=== PATIENT | female | born 1985 | race Caucasian/White ===

== ENCOUNTER 2021-10-30 11:03 | Inpatient (IN) | payer OTHER ==
[~2021-10-30] VITALS: Ht 160 cm; Wt 54.5 kg
[2021-10-30 12:20] LABS: HEMATOCRIT 41.1 % (36.0-47.0); HEMOGLOBIN 13.4 g/dl (12.0-15.5); MEAN CORPUSCULAR HEMOGLOBIN 30.6 pg (27.0-33.0); MEAN CORPUSCULAR HGB CONC 32.6 g/dl (32.0-36.5); MEAN CORPUSCULAR VOLUME 93.8 fl (80.0-96.0); PLATELET COUNT, AUTOMATED 271 10^3/uL (150-450); RED BLOOD COUNT 4.38 10^6/uL (4.00-5.40); WHITE BLOOD COUNT 12.2 10^3/uL (4.0-10.0)
[2021-10-30 13:03] LABS: HCG, SERUM QUALITATIVE NEGATIVE (NEGATIVE)
[2021-10-30 13:12] LABS: ACETAMINOPHEN LEVEL < 2.0 UG/ML (10.0-30.0); ALBUMIN 4.4 GM/DL (3.2-5.2); ALT/SGPT 56 U/L (12-78); BILIRUBIN,DIRECT 0.1 MG/DL (0.0-0.2); BILIRUBIN,TOTAL 0.6 MG/DL (0.2-1.0); BLOOD UREA NITROGEN 20 MG/DL (7-18); CALCIUM LEVEL 9.3 MG/DL (8.5-10.1); CARBON DIOXIDE LEVEL 28 MEQ/L (21-32); CHLORIDE LEVEL 102 MEQ/L (98-107); CREATININE FOR GFR 0.81 MG/DL (0.55-1.30); ETHYL ALCOHOL (ETHANOL) < 0.003 % (0.000-0.010); GLOMERULAR FILTRATION RATE > 60.0 (>60); GLUCOSE, FASTING 146 MG/DL (70-100); POTASSIUM SERUM 4.2 MEQ/L (3.5-5.1); SALICYLATE LEVEL 4.4 MG/DL (5.0-30.0); SODIUM LEVEL 138 MEQ/L (136-145); THYROID STIMULATING HORMONE 0.905 uIU/ML (0.358-3.740); TOTAL PROTEIN 8.8 GM/DL (6.4-8.2)
[2021-10-30 19:14] LABS: AMPHETAMINES LEVEL URINE NEGATIVE (NEGATIVE); BARBITURATES URINE NEGATIVE (NEGATIVE); BENZODIAZEPINES URINE NEGATIVE (NEGATIVE); CANNABINOIDS URINE POSITIVE (NEGATIVE); COCAINE METABOLITE URINE NEGATIVE (NEGATIVE); METHADONE URINE POSITIVE (NEGATIVE); OPIATES URINE POSITIVE (NEGATIVE); PHENCYCLIDINE URINE NEGATIVE (NEGATIVE)
[2021-10-30] MEDS ORDERED: OLANZapine ORAL DISINTEGRATING TAB 5MG PO PRN (21:30)
[2021-10-30] MEDS ORDERED: MOM 30ML SUSPENSION UDC PO PRN (21:30)
[2021-10-30] MEDS ORDERED: traZODone 50 MG TAB PO PRN (21:30)
[2021-10-30] MEDS ORDERED: MAALOX 30 ML SUSP *UDC PO PRN (21:30)
[2021-10-30] MEDS ORDERED: ACETAMINOPHEN TAB 650MG DOSE (2X325MG) PO PRN (21:30)
[2021-10-31] MEDS ORDERED: LORazepam 2 MG/ML VIAL IM ONE (02:00)
[2021-10-31] MEDS ORDERED: HALOPERIDOL 5MG/ML VIAL (J1630 PER 1) IM ONE (02:00)
[2021-10-31] MEDS ORDERED: diphenhydrAMINE 50MG/ML VIAL (J1200) IM ONE (02:00)
[2021-10-31] MEDS ORDERED: GABAPENTIN 100 MG CAP PO PRN ×2 (11:30→11:50)
[2021-10-31] MEDS ORDERED: QUEtiapine FUMARATE 100 MG TAB PO PRN (11:50)
[2021-11-01 06:23] VITALS: BP 108/72
[2021-11-01] MEDS: SERTRALINE HCL 25 MG TABLET PO SCH (11:44)
[2021-11-01 13:52] LABS: CHOLESTEROL RISK RATIO 2.588 (<5)
[2021-11-01 18:15] VITALS: BP 109/70
[2021-11-02 06:55] VITALS: BP 105/65
[2021-11-02] MEDS: SERTRALINE HCL 25 MG TABLET PO SCH (09:59)
[2021-11-02] MEDS: diphenhydrAMINE 25MG CAP PO PRN ×2 (14:41→20:56)
[2021-11-02 16:00] VITALS: BP 141/90
[2021-11-03 07:11] VITALS: BP 116/87
[2021-11-03] MEDS: SERTRALINE HCL 25 MG TABLET PO SCH (08:53)
[2021-11-03] MEDS: diphenhydrAMINE 25MG CAP PO PRN (08:53)
[2021-11-03] MEDS ORDERED: DIPH25CA32 PO (11:50)
[2021-11-03] MEDS ORDERED: ABIL1TAB11 PO (11:50)
[2021-11-03] MEDS ORDERED: GABA-283 PO (11:50)
[2021-11-03] MEDS ORDERED: SERT-141 PO (11:50)
[2021-11-03] MEDS ORDERED: NARC1SPR NARES (11:52)
[2021-11-03] MEDS ORDERED: METHADONE 10 MG TAB (S0109) PO ONE (13:15)
[2021-11-03] MEDS ORDERED: METHADONE 5 MG TAB (S0109) PO ONE (13:15)
== END 2021-11-03 15:36 | disposition home or self-care (01) | DRG 755 ==
LOC: M ED 11:03 → M ED INP 21:29 → M PSY 23:11
PROVIDERS: ADMIT Student in an Organized Health Care Education/Training Program; ATTEND Student in an Organized Health Care Education/Training Program
DX: F43.10 Post-traumatic stress disorder, unspecified (principal); Z78.1 Physical restraint status; F11.10 Opioid abuse, uncomplicated; F12.10 Cannabis abuse, uncomplicated; F17.200 Nicotine dependence, unspecified, uncomplicated; F19.159 Other psychoactive substance abuse with psychoactive substance-induced psychotic disorder, unspecified; Z59.00 Homelessness unspecified

== ENCOUNTER 2021-11-03 22:47 | Emergency (ER) | payer OTHER ==
[~2021-11-03] VITALS: Ht 162.6 cm; Wt 56.4 kg
[~2021-11-03 22:47] MED LIST: ABIL1TAB11 PO; DIPH25CA32 PO; GABA-283 PO; NARC1SPR NARES; SERT-141 PO
[2021-11-03 23:22] LABS: BASO % 0.4 % (0.0-1.0); EOS # 0.1 10^3/uL (0.0-0.5); EOS % 0.6 % (0.0-3.0); HEMATOCRIT 40.5 % (36.0-47.0); HEMOGLOBIN 13.3 g/dl (12.0-15.5); LYMPH # 2.8 10^3/uL (1.5-5.0); LYMPH % 27.4 % (24.0-44.0); MEAN CORPUSCULAR HEMOGLOBIN 30.2 pg (27.0-33.0); MEAN CORPUSCULAR HGB CONC 32.8 g/dl (32.0-36.5); MONO # 0.6 10^3/uL (0.0-0.8); MONO % 6.3 % (2.0-8.0); NEUTROPHILS # 6.6 10^3/uL (1.5-8.5); NEUTROPHILS % 64.9 % (36.0-66.0); PLATELET COUNT, AUTOMATED 313 10^3/uL (150-450); WHITE BLOOD COUNT 10.2 10^3/uL (4.0-10.0)
[2021-11-03 23:56] LABS: HCG, SERUM QUALITATIVE NEGATIVE (NEGATIVE)
[2021-11-03] MEDS ORDERED: LORazepam 2 MG TAB PO STA (23:59)
[2021-11-04] MEDS ORDERED: OLANZapine ORAL DISINTEGRATING TAB 5MG PO ONE
[2021-11-04 00:02] LABS: ACETAMINOPHEN LEVEL < 2.0 UG/ML (10.0-30.0); ALBUMIN 3.9 GM/DL (3.2-5.2); ALT/SGPT 34 U/L (12-78); BILIRUBIN,DIRECT < 0.1 MG/DL (0.0-0.2); BILIRUBIN,TOTAL 0.3 MG/DL (0.2-1.0); BLOOD UREA NITROGEN 15 MG/DL (7-18); CARBON DIOXIDE LEVEL 24 MEQ/L (21-32); CHLORIDE LEVEL 109 MEQ/L (98-107); CREATININE FOR GFR 0.84 MG/DL (0.55-1.30); ETHYL ALCOHOL (ETHANOL) < 0.003 % (0.000-0.010); GLOMERULAR FILTRATION RATE > 60.0 (>60); GLUCOSE, FASTING 148 MG/DL (70-100); POTASSIUM SERUM 5.6 MEQ/L (3.5-5.1); SALICYLATE LEVEL 1.8 MG/DL (5.0-30.0); SODIUM LEVEL 140 MEQ/L (136-145); THYROID STIMULATING HORMONE 0.964 uIU/ML (0.358-3.740); TOTAL PROTEIN 8.5 GM/DL (6.4-8.2)
[2021-11-04 02:13] LABS: RSV AMPLIFICATION NEGATIVE (NEGATIVE)
[2021-11-04 02:44] LABS: AMPHETAMINES LEVEL URINE NEGATIVE (NEGATIVE); BARBITURATES URINE NEGATIVE (NEGATIVE); BENZODIAZEPINES URINE NEGATIVE (NEGATIVE); CANNABINOIDS URINE POSITIVE (NEGATIVE); COCAINE METABOLITE URINE NEGATIVE (NEGATIVE); METHADONE URINE POSITIVE (NEGATIVE); OPIATES URINE NEGATIVE (NEGATIVE); PHENCYCLIDINE URINE NEGATIVE (NEGATIVE)
[2021-11-04] MEDS ORDERED: METHADONE 10 MG TAB (S0109) PO ONE (14:40)
[2021-11-04] MEDS ORDERED: SERTRALINE HCL 50 MG TAB PO ONE (14:40)
[2021-11-04 15:13] VITALS: BP 114/68
[2021-11-05 09:35] LABS: HIV 1&2 SCREEN CENTAUR REACTIVE (NEGATIVE)
== END 2021-11-04 15:17 | disposition home or self-care (01) ==
LOC: EDBD 22:47 → M ED 22:47
DX: F19.10 Other psychoactive substance abuse, uncomplicated (principal); B20 Human immunodeficiency virus [HIV] disease; F17.200 Nicotine dependence, unspecified, uncomplicated; Z79.899 Other long term (current) drug therapy

== ENCOUNTER 2021-11-05 00:53 | Emergency (ER) | payer OTHER ==
[~2021-11-05] VITALS: Ht 162.6 cm; Wt 58.9 kg
[2021-11-05 00:57] VITALS: BP 138/95
== END 2021-11-05 02:30 | disposition left against medical advice (07) ==
LOC: M ED 00:53
DX: Z53.21 Procedure and treatment not carried out due to patient leaving prior to being seen by health care provider (principal)

== ENCOUNTER → 2024-01-21 | Outpatient (REF) ==
[~2024-01-21] MED LIST changes: +DIPH-435 PO; -DIPH25CA32 PO; -GABA-283 PO; +GABA-284 PO
== END ==
LOC: M PLAIMG 09:25
PROVIDERS: ATTEND Internal Medicine
DX: R52 Pain, unspecified (principal)

== ENCOUNTER 2024-06-05 23:57 | Emergency (ER) | payer OTHER ==
[~2024-06-05] VITALS: Ht 162.6 cm; Wt 57.8 kg
[2024-06-06] MEDS ORDERED: SUMA25TA3 (09:54)
[2024-06-06] MEDS ORDERED: BAYE500T2 PO (09:54)
[2024-06-06] MEDS ORDERED: BIKT1TAB PO (09:54)
[2024-06-06] MEDS ORDERED: IBUP1TAB6 PO (09:54)
[2024-06-06] MEDS ORDERED: ACET-683 PO (09:54)
[2024-06-06] MEDS: CYCLOBENZAPRINE 5MG TABLET PO ONE (10:25)
[2024-06-06] MEDS: methocarbamoL 500 MG TAB PO ONE (10:25)
[2024-06-06] MEDS: KETOROLAC 30 MG/ML 1ML VIAL IM ONE (10:26)
[2024-06-06 11:14] VITALS: BP 113/61; TEMP 98.3; O2SAT 100
[2024-06-06] MEDS ORDERED: IBUP-1022 PO (11:29)
[2024-06-06] MEDS ORDERED: METH-1164 PO (11:29)
[2024-06-06] MEDS ORDERED: MEDR4PAK PO (11:29)
== END 2024-06-06 11:43 | disposition home or self-care (01) ==
LOC: EDBD 23:57 → M ED 23:57
DX: M54.31 Sciatica, right side (principal); M54.16 Radiculopathy, lumbar region; F17.210 Nicotine dependence, cigarettes, uncomplicated; Z79.1 Long term (current) use of non-steroidal anti-inflammatories (NSAID); Z79.899 Other long term (current) drug therapy
CPT/HCPCS: 96372; 99284; J1885

== ENCOUNTER 2024-08-05 15:41 | Emergency (ER) | payer OTHER ==
[~2024-08-05] VITALS: Ht 162.6 cm; Wt 56.8 kg
[~2024-08-05 15:41] MED LIST changes: +ACET-683 PO; +BAYE500T2 PO; +BIKT1TAB PO; +IBUP-1022 PO; +IBUP1TAB6 PO; +MEDR4PAK PO; +METH-1164 PO; +SUMA25TA3
[2024-08-05] MEDS: LIDOCAINE 2% 5ML JELLY UROJET TOP ONE (17:00)
[2024-08-05] MEDS ORDERED: CEFD300C PO (17:39)
[2024-08-05 18:09] VITALS: BP 102/62; TEMP 99.2; O2SAT 98
[2024-08-05] MEDS: ACETAMINOPHEN 500 MG TAB PO ONE (18:16)
[2024-08-05] MEDS: CEFDINIR 300 MG CAP (OMNICEF) PO ONE (18:16)
== END 2024-08-05 19:38 | disposition home or self-care (01) ==
LOC: M ED 15:41 → EDBD 15:41 → M ED 19:38
DX: N30.00 Acute cystitis without hematuria (principal); F17.200 Nicotine dependence, unspecified, uncomplicated; Z59.00 Homelessness unspecified; M54.30 Sciatica, unspecified side

== ENCOUNTER 2024-08-29 16:57 | Inpatient (IN) | payer OTHER ==
[2024-08-29 12:45] VITALS: BP 107/79; TEMP 86; O2SAT 99
[~2024-08-29 16:57] MED LIST changes: +CEFD300C PO
[2024-08-29 17:27] LABS: HEMATOCRIT 43.2 % (36.0-47.0); HEMOGLOBIN 14.4 g/dl (12.0-15.5); MEAN CORPUSCULAR HGB CONC 33.3 g/dl (32.0-36.5); MEAN CORPUSCULAR VOLUME 102.1 fl (80.0-96.0); PLATELET COUNT, AUTOMATED 269 10^3/uL (150-450); RED BLOOD COUNT 4.23 10^6/uL (4.00-5.40); WHITE BLOOD COUNT 8.1 10^3/uL (4.0-10.0)
[2024-08-29 17:50] LABS: ETHYL ALCOHOL (ETHANOL) < 0.003 % (0.000-0.010)
[2024-08-29 17:52] LABS: ALBUMIN 4.4 G/DL (3.2-5.2); ALKALINE PHOSPHATASE 60 U/L (35-104); ALT/SGPT 18 U/L (7.0-40); AST/SGOT 9 U/L (<34); BILIRUBIN,DIRECT 0.1 MG/DL (<0.4); BILIRUBIN,TOTAL 0.6 MG/DL (0.3-1.2); BLOOD UREA NITROGEN 16 MG/DL (9-23); CALCIUM LEVEL 9.3 MG/DL (8.5-10.1); CARBON DIOXIDE LEVEL 25 MMOL/L (20-31); CHLORIDE LEVEL 105 MMOL/L (98-107); CREATININE FOR GFR 0.63 MG/DL (0.55-1.30); GLOMERULAR FILTRATION RATE > 60.0 (>60); GLUCOSE, FASTING 97 MG/DL (60-100); POTASSIUM SERUM 4.2 MMOL/L (3.5-5.1); SALICYLATE LEVEL < 3.0 MG/DL (<30); SODIUM LEVEL 138 MMOL/L (136-145); TOTAL PROTEIN 7.9 G/DL (5.7-8.2)
[2024-08-29 17:54] LABS: THYROID STIMULATING HORMONE 0.528 uIU/ML (0.55-4.78)
[2024-08-29 17:59] LABS: HCG, SERUM QUALITATIVE NEGATIVE (NEGATIVE)
[2024-08-29 18:42] LABS: AMPHETAMINES LEVEL URINE NEGATIVE (NEGATIVE); BARBITURATES URINE NEGATIVE (NEGATIVE); BENZODIAZEPINES URINE NEGATIVE (NEGATIVE); CANNABINOIDS URINE NEGATIVE (NEGATIVE); COCAINE METABOLITE URINE NEGATIVE (NEGATIVE); METHADONE URINE NEGATIVE (NEGATIVE); OPIATES URINE NEGATIVE (NEGATIVE); PHENCYCLIDINE URINE NEGATIVE (NEGATIVE)
[2024-08-29] MEDS: BACITRACIN OINTMENT 30GM TUBE TOP ONE (19:25)
[2024-08-29] MEDS ORDERED: OLANZapine ORAL DISINTEGRATING TAB 5MG PO PRN (19:40)
[2024-08-29] MEDS ORDERED: IBUPROFEN 400MG TAB PO PRN (19:40)
[2024-08-29] MEDS ORDERED: ACETAMINOPHEN 325 MG TAB PO PRN (19:40)
[2024-08-29] MEDS ORDERED: MAALOX 30 ML SUSP *UDC PO PRN (19:40)
[2024-08-29] MEDS ORDERED: TRAM50TA2 PO (21:03)
[2024-08-29] MEDS ORDERED: IBUP1TAB7 PO (21:03)
[2024-08-29] MEDS ORDERED: LIDO1PAD TOP (21:04)
[2024-08-29] MEDS ORDERED: HOME MED LIST COMPLETE! XX SCH (21:05)
[2024-08-29 23:50] VITALS: BP 101/59; TEMP 86.7; O2SAT 100
[2024-08-29] MEDS: LORazepam 2 MG/ML 1ML VIAL IM STA (23:52)
[2024-08-29] MEDS: diphenhydrAMINE 50MG/ML VIAL IM ONE (23:53)
[2024-08-29] MEDS: HALOPERIDOL LACTATE 5MG/ML VIAL IM STA (23:54)
[2024-08-30] MEDS ORDERED: BIKTARVY PO SCH (09:00)
[2024-08-30] MEDS: LIDOCAINE 5% (LIDODERM) PATCH TOP SCH (15:38)
[2024-08-30] MEDS: traMADol 50 MG TAB PO PRN (15:42)
[2024-08-30 16:12] VITALS: BP 133/78; TEMP 97.2; O2SAT 98
[2024-08-30] MEDS: NICOTINE 21MG/24HR 1 EA TRANSDERMAL TD SCH (18:35)
[2024-08-30] MEDS: UNRESOLVED PATIENT OWN MED ORDER XX SCH (20:20)
[2024-08-30] MEDS: MOM 30ML SUSPENSION UDC PO PRN (20:26)
[2024-08-30] MEDS: OLANZapine 5 MG TAB PO SCH (21:00)
[2024-08-30] MEDS: traZODone 50 MG TAB PO PRN (23:06)
[2024-08-31 06:53] VITALS: BP 152/75; TEMP 96.9; O2SAT 95
[2024-08-31] MEDS: ARIPiprazole 15 MG TAB (AbiLIFY) PO SCH (10:36)
[2024-08-31] MEDS: GABAPENTIN 300 MG CAP PO SCH (10:36)
[2024-08-31 14:46] VITALS: BP 120/73; TEMP 98.1; O2SAT 100
[2024-08-31 21:32] LABS: Trichomonas vaginalis (AMP) NOT DETECTED (NEGATIVE)
[2024-08-31 21:55] LABS: GC DNA AMPLIFICATION NEGATIVE (NEGATIVE)
[2024-09-01 06:26] VITALS: BP 99/56; TEMP 97.3; O2SAT 98
[2024-09-01 09:54] VITALS: BP 140/80
[2024-09-01] MEDS: IBUPROFEN 800 MG TAB PO PRN (11:03)
[2024-09-01 16:14] VITALS: BP 100/69; TEMP 97.8; O2SAT 100
[2024-09-01] MEDS: diphenhydrAMINE 25MG CAP PO PRN (20:17)
[2024-09-02 06:21] VITALS: BP 125/60; TEMP 97.8; O2SAT 100
[2024-09-02] MEDS: PILL CUTTER 1 EACH XX PRN (08:06)
[2024-09-02 15:50] VITALS: BP 112/75; TEMP 98.7; O2SAT 100
[2024-09-02] MEDS: BISACODYL 5MG TAB PO ONE (16:36)
[2024-09-02] MEDS: DOCUSATE SODIUM 100MG CAPSULE PO PRN (20:11)
[2024-09-03 06:52] VITALS: BP 114/58; TEMP 98.1; O2SAT 98
[2024-09-03 16:41] VITALS: BP 84/53; TEMP 98.2; O2SAT 100
[2024-09-04 06:50] VITALS: BP 109/65; TEMP 98.5; O2SAT 98
[2024-09-04] MEDS ORDERED: ABIL1TAB12 PO (13:34)
[2024-09-04] MEDS ORDERED: TRAZ-252 PO (13:34)
[2024-09-04] MEDS ORDERED: GABA-1172 PO (13:34)
[2024-09-04 14:18] VITALS: BP 107/68
== END 2024-09-04 15:51 | disposition home or self-care (01) | DRG 892 ==
LOC: M ED 16:57 → M ED INP 19:37 → M PSY 22:19
PROVIDERS: ADMIT Psychiatry & Neurology Psychiatry; ATTEND Psychiatry & Neurology Psychiatry
DX: F29 Unspecified psychosis not due to a substance or known physiological condition (principal); B20 Human immunodeficiency virus [HIV] disease; G89.29 Other chronic pain; M54.9 Dorsalgia, unspecified; F17.210 Nicotine dependence, cigarettes, uncomplicated; K59.00 Constipation, unspecified; Z62.811 Personal history of psychological abuse in childhood; Z91.51 Personal history of suicidal behavior; Z62.810 Personal history of physical and sexual abuse in childhood; Z81.8 Family history of other mental and behavioral disorders; Z79.899 Other long term (current) drug therapy; Z63.8 Other specified problems related to primary support group

== ENCOUNTER 2025-05-02 06:15 | Emergency (ER) | payer MEDICAID, OTHER ==
[~2025-05-02 06:15] MED LIST changes: +ABIL1TAB12 PO; +GABA-1172 PO; +IBUP1TAB7 PO; +LIDO1PAD TOP; +TRAM50TA2 PO; +TRAZ-252 PO
[2025-05-02 06:33] VITALS: BP 110/70; TEMP 97.7; O2SAT 98
[2025-05-02 07:16] LABS: PLATELET COUNT, AUTOMATED 317 10^3/uL (150-450)
[2025-05-02 07:33] LABS: ETHYL ALCOHOL (ETHANOL) < 0.003 % (0.000-0.010)
[2025-05-02 07:34] LABS: SALICYLATE LEVEL < 3.0 MG/DL (<30)
[2025-05-02 07:35] LABS: ALT/SGPT 27 U/L (7.0-40); AST/SGOT 28 U/L (<34); CALCIUM LEVEL 9.7 MG/DL (8.5-10.1); CARBON DIOXIDE LEVEL 24 MMOL/L (20-31); CHLORIDE LEVEL 105 MMOL/L (98-107); CREATININE FOR GFR 0.67 MG/DL (0.55-1.30); GLOMERULAR FILTRATION RATE > 90.0 (>60); POTASSIUM SERUM 3.7 MMOL/L (3.5-5.1); SODIUM LEVEL 144 MMOL/L (136-145)
[2025-05-02] MEDS ORDERED: CYCL5TAB4 PO (13:19)
[2025-05-02] MEDS ORDERED: MELO7.5T35 PO (13:19)
[2025-05-02] MEDS ORDERED: HOME MED LIST COMPLETE! XX SCH (13:25)
[2025-05-02 13:44] LABS: AMPHETAMINES LEVEL URINE NEGATIVE (NEGATIVE); BARBITURATES URINE NEGATIVE (NEGATIVE); BENZODIAZEPINES URINE NEGATIVE (NEGATIVE); CANNABINOIDS URINE NEGATIVE (NEGATIVE); OPIATES URINE NEGATIVE (NEGATIVE); PHENCYCLIDINE URINE NEGATIVE (NEGATIVE)
[2025-05-02 13:46] LABS: COCAINE METABOLITE URINE POSITIVE (NEGATIVE); METHADONE URINE POSITIVE (NEGATIVE)
[2025-05-02 18:44] LABS: FREE T4 1.83 NG/DL (0.89-1.76)
== END 2025-05-02 18:34 | disposition home or self-care (01) ==
LOC: M ED 06:15
DX: F31.9 Bipolar disorder, unspecified (principal); F19.10 Other psychoactive substance abuse, uncomplicated; R94.6 Abnormal results of thyroid function studies; B20 Human immunodeficiency virus [HIV] disease; Z79.899 Other long term (current) drug therapy